=== PATIENT | male | born 1970 | race Caucasian/White ===

== ENCOUNTER 2023-07-24 13:48 | Emergency (ER) | payer OTHER ==
[2023-07-24] MEDS: Acetaminophen 325 MG Tab PO ONE (14:51)
[2023-07-24] MEDS: Sodium Chloride 0.9% 1,000 ML IV ONE (14:51)
[2023-07-24] MEDS: Ketorolac 15 MG/ML SDV IVPUSH ONE (16:12)
== END 2023-07-24 16:28 | disposition home or self-care (01) ==
LOC: JD.ED 13:48
DX: S96.911A Strain of unspecified muscle and tendon at ankle and foot level, right foot, initial encounter (principal); S70.01XA Contusion of right hip, initial encounter; S70.02XA Contusion of left hip, initial encounter; S80.811A Abrasion, right lower leg, initial encounter; S50.311A Abrasion of right elbow, initial encounter; I10 Essential (primary) hypertension; E78.5 Hyperlipidemia, unspecified; Z79.899 Other long term (current) drug therapy; V09.20XA Pedestrian injured in traffic accident involving unspecified motor vehicles, initial encounter; Y92.410 Unspecified street and highway as the place of occurrence of the external cause; Y93.01 Activity, walking, marching and hiking
CPT/HCPCS: 73100; 73502; 73590; 73610; 73630; 96361; 96374; 99284; A9270; J1885; J7030